=== PATIENT | female | born 1990 | race African-American/Black ===

== ENCOUNTER 2019-02-18 11:11 | Inpatient (IN) | payer MEDICAID ==
[~2019-02-18] VITALS: Ht 170.2 cm; Wt 106.6 kg
[2019-02-18] MEDS ORDERED: SODIUM CHLORIDE 0.9% 1,000 ML IV SCH (11:40)
[2019-02-18] MEDS ORDERED: METHYLPREDNISOLONE SOD SUCC 125 MG/2 ML VIAL IV ONE (11:45)
[2019-02-18] MEDS ORDERED: FAMOTIDINE 20MG/2ML VIAL IV ONE (11:45)
[2019-02-18] MEDS ORDERED: DIPHENHYDRAMINE 50MG/ML VIAL IV ONE (11:45)
[2019-02-18 12:08] LABS: BASOPHILS % 0.8 % (0.0-2.0); EOSINOPHILS % 6.9 % (0.0-5.0); HEMATOCRIT. 38.1 % (36.0-48.0); HEMOGLOBIN. 12.7 g/dL (12.0-16.0); LYMPHOCYTES % 23.2 % (20.0-50.0); MEAN CORPUSCULAR HEMOGLOBIN 28.6 pg (28.0-32.0); MEAN CORPUSCULAR VOLUME 85.7 fL (81.0-99.0); MEAN PLATELET VOLUME 9.9 fl (7.4-10.4); MONOCYTES % 10.6 % (2.0-8.0); NEUTROPHILS % 58.5 % (40.0-76.0); PLATELET 238 x1000/uL (130-400); RED BLOOD CELL COUNT 4.44 mill/uL (4.2-5.4); RED CELL DISTRIBUTION WIDTH 14.6 % (11.6-14.6)
[2019-02-18 12:13] LABS: CHLORIDE 103 mEq/L (98-107)
[2019-02-18] MEDS ORDERED: IPRATROPIUM/ALBUTEROL 0.5-3(2.5)MG/3ML NEB NEB PRN (13:30)
[2019-02-18] MEDS ORDERED: DEXTROSE 50% WATER 50ML SYRINGE IV PRN (13:30)
[2019-02-18] MEDS ORDERED: GUAIFENESIN 200MG/10ML SUGAR FREE UDC PO PRN (13:30)
[2019-02-18] MEDS ORDERED: ZOLPIDEM TARTRATE 5MG TABLET PO PRN (13:30)
[2019-02-18] MEDS ORDERED: ACETAMINOPHEN 325MG TABLET PO PRN (13:30)
[2019-02-18] MEDS ORDERED: LORAZEPAM 0.5MG TABLET PO PRN (13:30)
[2019-02-18] MEDS ORDERED: MAGNESIUM/ALUMINUM HYDROXIDE/SIMETHICONE 30ML UDC PO PRN (13:30)
[2019-02-18] MEDS ORDERED: ONDANSETRON HCL 4MG/2ML INJ IV PRN (13:30)
[2019-02-18] MEDS ORDERED: KETOROLAC 15MG/ML VIAL IV PRN (13:30)
[2019-02-18] MEDS ORDERED: CLONIDINE 0.1MG TABLET PO PRN (13:30)
[2019-02-18] MEDS ORDERED: DOCUSATE SODIUM 100MG CAPSULE PO PRN (13:30)
[2019-02-18] MEDS ORDERED: NITROGLYCERIN 0.4MG TABLET SL SL PRN (13:30)
[2019-02-18 16:15] VITALS: BP 132/79
[2019-02-18 16:36] VITALS: BP 132/79
[2019-02-18] MEDS ORDERED: ATOR10TA69 MT (17:04)
[2019-02-18] MEDS ORDERED: NVLG73 SUBCUT (17:04)
[2019-02-18] MEDS ORDERED: LISI10TA5 MT (17:04)
[2019-02-18] MEDS ORDERED: [UNRECOGNIZED DRUG - OTHER] SQ (17:07)
[2019-02-18] MEDS: BLOOD SUGAR DIAGNOSTIC STRIP TEST SCH ×2 (17:16→20:57)
[2019-02-18] MEDS ORDERED: PNEUMOCOCCAL 23-VAL P-SAC VAC 0.5 ML IM ONE (17:30)
[2019-02-18] MEDS: INSULIN LISPRO 100 UNITS/ML SUBCUT SCH ×2 (17:44→21:42)
[2019-02-18 20:00] VITALS: BP 142/78
[2019-02-18] MEDS: FAMOTIDINE 20MG TABLET PO SCH (20:57)
[2019-02-18] MEDS ORDERED: METOPROLOL TARTRATE 25MG TABLET PO SCH (21:00)
[2019-02-18] MEDS: METHYLPREDNISOLONE SOD SUCC 125 MG/2 ML VIAL IV SCH (21:08)
[2019-02-19 04:00] VITALS: BP 138/68
[2019-02-19] MEDS: METHYLPREDNISOLONE SOD SUCC 125 MG/2 ML VIAL IV SCH (06:10)
[2019-02-19] MEDS: BLOOD SUGAR DIAGNOSTIC STRIP TEST SCH (06:20)
[2019-02-19] MEDS: INSULIN LISPRO 100 UNITS/ML SUBCUT SCH (06:26)
[2019-02-19 08:00] VITALS: BP 125/72
[2019-02-19] MEDS: FAMOTIDINE 20MG TABLET PO SCH (10:21)
[2019-02-19 12:04] VITALS: BP 125/72
== END 2019-02-19 12:35 | disposition home or self-care (01) | DRG 811 ==
LOC: ER 11:11 → EDBEDREQ 11:45 → 5WST 12:19 → EDBEDREQ 12:40 → ENRESERV 15:30
PROVIDERS: ADMIT Internal Medicine; ATTEND Internal Medicine
PROC: 5A09357 Assistance with Respiratory Ventilation, Less than 24 Consecutive Hours, Continuous Positive Airway Pressure (ICD-10-PCS; principal; 2019-02-18)
DX: T78.3XXA Angioneurotic edema, initial encounter (principal); E11.9 Type 2 diabetes mellitus without complications; I10 Essential (primary) hypertension; T46.4X5A Adverse effect of angiotensin-converting-enzyme inhibitors, initial encounter; E66.9 Obesity, unspecified; Z98.891 History of uterine scar from previous surgery; Y92.89 Other specified places as the place of occurrence of the external cause; Z68.36 Body mass index [BMI] 36.0-36.9, adult; Z71.3 Dietary counseling and surveillance
CPT/HCPCS: 36415; 80061; 82962; 83036; 84484; 93970; 96361; 96374; 96375; 99291; J1200; J1815; J2930; J3490